=== PATIENT | male | born 1995 | race Asian ===

== ENCOUNTER 2016-04-19 15:08 | Emergency (ER) | payer SELFPAY ==
[~2016-04-19] VITALS: Ht 175.3 cm; Wt 90.0 kg
[~2016-04-19 15:08] MED LIST: ONDA4TAB8 PO
[2016-04-19 15:12] VITALS: Ht 175.3 cm; Wt 90.0 kg
== END 2016-04-19 18:28 | disposition left against medical advice (07) ==
LOC: E/R 15:08
DX: Z53.21 Procedure and treatment not carried out due to patient leaving prior to being seen by health care provider (principal)